=== PATIENT | female | born 1955 | race Caucasian/White ===

== ENCOUNTER 2017-08-29 08:14 | Day surgery (SDC) | payer BC ==
[~2017-08-29] VITALS: Ht 160 cm; Wt 99.8 kg
[~2017-08-29 08:14] MED LIST: ERGOCALCIF50000 UNIT PO; IRON325 M1 PO; LASIX20 MG PO; MULTIPLE VITAM1 EAC1 PO; VITAMIN D2000 UNIT PO
[2017-08-29 08:46] VITALS: BP 144/90
[2017-08-29 13:58] VITALS: BP 157/73
[2017-08-29 18:19] LABS: HEMATOCRIT 39.2 % (36.0-46.0); HEMOGLOBIN 12.8 G/DL (11.9-15.5); MCH 26.7 PG (29.0-34.0); MCHC 32.7 G/DL (30.0-36.0); MCV 81.7 FL (83-99); PLATELET COUNT 181 K/uL (156-360); RBC DIS.WIDTH-CV 20.1 % (11.8-14.6); WHITE BLOOD COUNT 10.1 K/uL (4.1-10.2)
[2017-08-29 18:34] LABS: CHLORIDE 105 MEQ/L (99-109); CREATININE 0.6 MG/DL (0.6-1.3); GFR ESTIMATE (CALCULATED) > 59 mL/min/; GLUCOSE 173 mg/dL (70-99); POTASSIUM 3.8 MEQ/L (3.7-5.4); SODIUM 137 MEQ/L (136-147); UREA NITROGEN (BUN) 9 mg/dL (9-23)
[2017-08-29 19:09] VITALS: BP 139/71
[2017-08-30 00:01] VITALS: BP 129/70
[2017-08-30 03:36] VITALS: BP 120/63
[2017-08-30 07:20] LABS: HEMATOCRIT 38.9 % (36.0-46.0); HEMOGLOBIN 12.4 G/DL (11.9-15.5); MCH 26.3 PG (29.0-34.0); MCHC 31.9 G/DL (30.0-36.0); MCV 82.4 FL (83-99); PLATELET COUNT 177 K/uL (156-360); RBC DIS.WIDTH-CV 20.1 % (11.8-14.6); RBC DIS.WIDTH-SD 59.7 % (39-53); RED BLOOD COUNT 4.72 M/uL (3.80-5.20); WHITE BLOOD COUNT 8.6 K/uL (4.1-10.2)
[2017-08-30 07:45] LABS: CHLORIDE 107 MEQ/L (99-109); CREATININE 0.6 MG/DL (0.6-1.3); GFR ESTIMATE (CALCULATED) > 59 mL/min/; POTASSIUM 3.8 MEQ/L (3.7-5.4); SODIUM 143 MEQ/L (136-147); UREA NITROGEN (BUN) 6 mg/dL (9-23)
[2017-08-30 07:46] LABS: GLUCOSE 90 mg/dL (70-99)
[2017-08-30 08:25] VITALS: BP 121/56
== END 2017-08-30 10:47 | disposition home or self-care (01) ==
LOC: SDC 08:14 → 2SOUTH 11:15 → ENRESERV 11:40 → 2EAST 13:51 → SDC 15:37 → 2EAST 08-30 10:47
PROVIDERS: Obstetrics & Gynecology Gynecologic Oncology
PROC: 0JQC0ZZ Repair Pelvic Region Subcutaneous Tissue and Fascia, Open Approach (ICD-10-PCS; principal; 2017-08-29)
PROC: 8E0UXY7 Examination of Female Reproductive System (ICD-10-PCS; principal; 2017-08-29)
DX: N81.6 Rectocele (principal); Z90.710 Acquired absence of both cervix and uterus; Z90.79 Acquired absence of other genital organ(s); Z90.722 Acquired absence of ovaries, bilateral; Z98.84 Bariatric surgery status; K21.9 Gastro-esophageal reflux disease without esophagitis; E78.5 Hyperlipidemia, unspecified; E03.9 Hypothyroidism, unspecified; I10 Essential (primary) hypertension; Z68.41 Body mass index [BMI] 40.0-44.9, adult
CPT/HCPCS: 80048; 85027; 88304; 94799; G0378; J0131; J0690; J1100; J1170; J2405; J3010

== ENCOUNTER 2017-09-08 10:49 | Emergency (ER) | payer BC ==
[~2017-09-08] VITALS: Ht 160 cm; Wt 97.4 kg
[2017-09-08 13:07] LABS: HEMATOCRIT 40.7 % (36.0-46.0); HEMOGLOBIN 13.5 G/DL (11.9-15.5); MCH 27.7 PG (29.0-34.0); MCHC 33.2 G/DL (30.0-36.0); MCV 83.4 FL (83-99); PLATELET COUNT 215 K/uL (156-360); RBC DIS.WIDTH-CV 18.6 % (11.8-14.6); RBC DIS.WIDTH-SD 56.4 % (39-53); RED BLOOD COUNT 4.88 M/uL (3.80-5.20); WHITE BLOOD COUNT 8.6 K/uL (4.1-10.2)
[2017-09-08 13:17] LABS: CHLORIDE 109 mEq/L (99-109); POTASSIUM 3.8 mEq/L (3.7-5.4); SODIUM 142 mEq/L (136-147)
[2017-09-08 13:19] LABS: GLUCOSE 88 mg/dL (70-99)
[2017-09-08 13:23] LABS: CREATININE 0.7 mg/dL (0.6-1.3); GFR ESTIMATE (CALCULATED) > 59 mL/min/
[2017-09-08 13:24] LABS: UREA NITROGEN (BUN) 7 mg/dL (9-23)
[2017-09-08 14:12] VITALS: BP 132/76
== END 2017-09-08 14:16 | disposition home or self-care (01) ==
LOC: EME 10:49
PROVIDERS: Physician Assistant
DX: N99.820 Postprocedural hemorrhage of a genitourinary system organ or structure following a genitourinary system procedure (principal); Z91.81 History of falling; Z98.890 Other specified postprocedural states; Z98.84 Bariatric surgery status
CPT/HCPCS: 80048; 85027; 99281; 99283